=== PATIENT | female | born 1985 | race African-American/Black ===

== ENCOUNTER 2016-09-09 18:57 | Emergency (ER) | payer OTHER ==
--- NOTE | 2016-09-09 20:59 | EDDOCDS ---
Nurse's Notes [facility] Name: Bri Carcamo Age: 30 yrs Sex: Female : 1985 Arrival Date: 09/09/2016 Time: 18:57 Bed [facility] Diagnosis: Adjustment disorder with depressed mood Presentation: 09/09 19:02 Presenting complaint: Patient states: "My command referred me here.". pt reports she mb9 has no idea why she is here but believes, "My psychiatrist must have told my command something and they decided to send me here.". pt denies SI/Hi. pt's escort reports, "She is seen by behavioral health and she is in the IOP program on [place]. Our commander gets updates on what the pt discusses and its the commanders interpretation that she (the pt) is at a high risk for suicidal tendencies". Mental Health Triage Level: Level 1- Pt displays no suicidal or homicidal ideations and does not appear to be a danger to self or others. Adult Sepsis Screening: The patient does not have new or worsening altered mentation. Patient's respiratory rate is less than 22. Systolic blood pressure is greater than 100. Patient has a qSOFA score of 0- Negative Sepsis Screen. Suicide/Homicide risk assessment- the patient denies having any suicidal and/or homicidal ideations and does not present with any other emotional, behavioral or mental health complaints. 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 Transition of care: patient was not received from another setting of care. 19:02 Acuity: NIDHI Level 4 mb9 19:02 Method Of Arrival: Walkin/Carried/Asstd mb9 Triage Assessment: 19:02 General: Appears in no apparent distress, Behavior is appropriate for age. Pain: Denies mb9 pain. HIV screening NA for this visit Offered previously. Respiratory: Airway is patent Respiratory effort is even, unlabored. 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 Penicillin 250 mg twice a day 2. Plaquenil Oral 1 tab twice a day 3. Zoloft Oral 1 tab once daily 4. Wellbutrin Unknown Oral Unknown daily - PMHx: Anxiety; Arthritis; Depression; Rheumatic Fever; - PSHx: Left Foot Surgery; - Social history: Smoking status: Patient states former smoker of tobacco. No barriers to communication noted, The patient speaks fluent Hebrew. - Family history: Not pertinent. - : The pt / caregiver states he / she is not on anticoagulants. Home medication list is obtained from the patient. - Exposure Risk Screening:: None identified. Screenin:56 Screening information is obtained from the patient. Fall risk: No risks identified. mlc Assistance ADL's: requires no assistance with activities of daily living. Abuse/DV Screen: The patient / caregiver reports he/she is: not in a situation that causes fear, pain or injury. Nutritional screening: No deficits noted. Advance Directives: Currently, there is no health care proxy. home support is adequate. Assessment: 20:56 General: Appears in no apparent distress, comfortable, Behavior is cooperative, mlc pleasant. Pain: Denies pain. Neurological: Level of Consciousness is awake, alert, Oriented to person, place, time. Respiratory: Airway is patent Respiratory effort is even, unlabored, Respiratory pattern is regular. Derm: Skin is pink, warm & dry. Vital Signs: 18:58 BP 143 / 86; Pulse 88; Resp 18; Temp 98.6; Pulse Ox 100% ; Weight 90.72 kg; Height 64 jlm in. (162.56 cm); Pain 0/10; 20:50 BP 137 / 86; Pulse 70; Resp 18; Temp 98.1; Pulse Ox 100% ; Pain 0/10; mas 18:58 Body Mass Index 34.33 (90.72 kg, 162.56 cm) [facility] Vitals: 18:58 Log In Time: September 09, 2016 at 18:58. RN notified that patient meets Red Flag jlm criteria. ED Course: 18:58 Patient visited by Pau Horton Unit Clerk. [facility] 18:58 [facility] Phys[facility]. [facility] 18:58 Patient moved to Waiting [facility] 19:07 Patient moved to [facility] mas 19:08 Yang Blackburn FNP is [facility] ke 19:08 Patient visited by Yang Blackburn FNP. ke 19:08 Patient visited by Yang Blackburn FNP. ke 19:15 Patient visited by Jose Nicholson. mas 19:20 Triage Initiated mb9 19:40 Patient visited by Jose Nicholson. mas 19:45 Patient visited by Jose Nicholson. mas 20:00 Patient visited by Jose Nicholson. mas 20:15 Patient visited by Jose Nicholson. mas 20:30 Patient visited by Jose Nicholson. mas 20:45 Patient visited by Jose Nicholson. mas 20:46 [facility] Payment Agreement was scanned into [employer] and attached to record. zo 20:48 [facility] is Referral Physician. ke 20:48 [facility] ke 20:56 The patient / caregiver is instructed regarding the plan of care and ED course. mlc 20:56 No IV's were initiated during this patient's visit. No procedures done that require mlc assistance. Order Results: There are currently no results for this order. Outcome: 20:49 Discharge ordered by Provider. ke 20:56 Discharge Assessment: Patient awake, alert and oriented x 3. No cognitive and/or mlc functional deficits noted. Patient verbalized understanding of disposition instructions. patient administered narcotics - no. The following High Risk Discharge criteria are identified: None. Discharged to home ambulatory, with Chain of command. Condition: stable. Discharge instructions given to patient, Instructed on discharge instructions, follow up and referral plans. Demonstrated understanding of instructions, Pt was receptive of discharge instructions/ teaching. No special radiology studies were completed. Property sent home with patient. 20:57 Patient left the ED. mlc Signatures: Yang Blackburn, DRUG ABUSE RESISTANCE EDUCATION OFFICER DRUG ABUSE RESISTANCE EDUCATION OFFICER Rubens Vargas Marcus mas Mitchell, Jessie, Glass Forming Engineer Unit Flory Greenberg RN RN mlc Belles, Michael, RN RN mb9 MTDD
--- NOTE | 2016-09-09 20:59 | EDDOCDS ---
Physician Documentation [facility] Name: Bri Carcamo Age: 30 yrs Sex: Female : 1985 Arrival Date: 09/09/2016 Time: 18:57 Bed [facility] Disposition: 09/09/16 20:49 Discharged to Home/Self Care. Impression: Adjustment disorder with depressed mood. - Condition is Stable. - Discharge Instructions: Adjustment Disorder, Depression, Adult, Self-Destructive Behavior. - Medication Reconciliation, Local Pharmacy Hours form. - [facility] [place]; When: 4 - 5 days; Reason: Continuance of care. Follow up: [place], [facility]; When: 4 - 5 days; Reason: Continuance of care. - Problem is an ongoing problem. - Symptoms are unchanged. Historical: - Allergies: no known allergies; - Home Meds: 1. Penicillin 250 mg twice a day 2. Plaquenil Oral 1 tab twice a day 3. Zoloft Oral 1 tab once daily 4. Wellbutrin Unknown Oral Unknown daily - PMHx: Anxiety; Arthritis; Depression; Rheumatic Fever; - PSHx: Left Foot Surgery; - Social history: Smoking status: Patient states former smoker of tobacco. No barriers to communication noted, The patient speaks fluent Mohawk. - Family history: Not pertinent. - : The pt / caregiver states he / she is not on anticoagulants. Home medication list is obtained from the patient. - Exposure Risk Screening:: None identified. 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 (162.56 cm); Pain 0/10; 20:50 BP 137 / 86; Pulse 70; Resp 18; Temp 98.1; Pulse Ox 100% ; Pain 0/10; mas 18:58 Body Mass Index 34.33 (90.72 kg, 162.56 cm) jl MDM: 19:40 Financial registration complete. zo 20:46 [facility] [place] Agreement was scanned into [employer] and attached to record. zo Signatures: Yang Blackburn, INVENTORY TRANSCRIBER INVENTORY TRANSCRIBER Rubesn Vargas Mandy, RN RN mlc Kike Sahu RN RN mb9 The chart was reviewed and I authenticate all verbal orders and agree with the evaluation and treatment provided.Attachments: 20:46 [facility] Payment Agreement zo MTDD
--- NOTE | 2016-09-11 21:58 | EDDOCDS ---
Physician Documentation [facility] Name: Bri Carcamo Age: 30 yrs Sex: Female : 1985 Arrival Date: 09/09/2016 Time: 18:57 Bed [facility] Private [facility] Disposition: 09/09/16 20:49 Discharged to Home/Self Care. Impression: Adjustment disorder with depressed mood. - Condition is Stable. - Discharge Instructions: Adjustment Disorder, Depression, Adult, Self-Destructive Behavior. - Medication Reconciliation, Local Pharmacy Hours form. - [facility] [place]; When: 4 - 5 days; Reason: Continuance of care. Follow up: [place], [facility]; When: 4 - 5 days; Reason: Continuance of care. - Problem is an ongoing problem. - Symptoms are unchanged. Historical: - Allergies: no known allergies; - Home Meds: 1. Penicillin 250 mg twice a day 2. Plaquenil Oral 1 tab twice a day 3. Zoloft Oral 1 tab once daily 4. Wellbutrin Unknown Oral Unknown daily - PMHx: Anxiety; Arthritis; Depression; Rheumatic Fever; - PSHx: Left Foot Surgery; - Social history: Smoking status: Patient states former smoker of tobacco. No barriers to communication noted, The patient speaks fluent Indonesian. - Family history: Not pertinent. - : The pt / caregiver states he / she is not on anticoagulants. Home medication list is obtained from the patient. - Exposure Risk Screening:: None identified. 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 (162.56 cm); Pain 0/10; 20:50 BP 137 / 86; Pulse 70; Resp 18; Temp 98.1; Pulse Ox 100% ; Pain 0/10; mas 18:58 Body Mass Index 34.33 (90.72 kg, 162.56 cm) jl MDM: 19:40 Financial registration complete. zo 20:46 [facility] Payment Agreement was scanned into [employer] and attached to record. zo 21:43 E Legal paperwork was scanned into [employer] and attached to record. 09/10 09:24 T-Sheet-- Draft Copy was scanned into [employer] and attached to record. [facility] Signatures: Tariq Watkins, PSA PSA Yang Blackburn, CARD SCRAPER Rubens Villagomez Mandy, RN RN mlc Belles, Michael, RN RN mb9 Karissa Orosco [facility] The chart was reviewed and I authenticate all verbal orders and agree with the evaluation and treatment provided.Attachments: 09/09 20:46 [facility] [place] zo 09/10 09:24 T-Sheet-- Draft Copy [facility] Chart Complete MTDD
--- NOTE | 2016-09-11 21:58 | EDDOCDS ---
Physician Documentation [facility] Name: Bri Carcamo Age: 30 yrs Sex: Female : 1985 Arrival Date: 09/09/2016 Time: 18:57 Bed [facility] Disposition: 09/09/16 20:49 Discharged to Home/Self Care. Impression: Adjustment disorder with depressed mood. - Condition is Stable. - Discharge Instructions: Adjustment Disorder, Depression, Adult, Self-Destructive Behavior. - Medication Reconciliation, Local Pharmacy Hours form. - [facility] [place]; When: 4 - 5 days; Reason: Continuance of care. Follow up: [place], [facility]; When: 4 - 5 days; Reason: Continuance of care. - Problem is an ongoing problem. - Symptoms are unchanged. Historical: - Allergies: no known allergies; - Home Meds: 1. Penicillin 250 mg twice a day 2. Plaquenil Oral 1 tab twice a day 3. Zoloft Oral 1 tab once daily 4. Wellbutrin Unknown Oral Unknown daily - PMHx: Anxiety; Arthritis; Depression; Rheumatic Fever; - PSHx: Left Foot Surgery; - Social history: Smoking status: Patient states former smoker of tobacco. No barriers to communication noted, The patient speaks fluent German. - Family history: Not pertinent. - : The pt / caregiver states he / she is not on anticoagulants. Home medication list is obtained from the patient. - Exposure Risk Screening:: None identified. 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 (162.56 cm); Pain 0/10; 20:50 BP 137 / 86; Pulse 70; Resp 18; Temp 98.1; Pulse Ox 100% ; Pain 0/10; mas 18:58 Body Mass Index 34.33 (90.72 kg, 162.56 cm) jl MDM: 19:40 Financial registration complete. zo 20:46 [facility] Payment Agreement was scanned into [employer] and attached to record. zo 21:43 E Legal paperwork was scanned into [employer] and attached to record. 09/10 09:24 T-Sheet-- Draft Copy was scanned into [employer] and attached to record. [facility] Signatures: Tariq Watkins, PSA PSA Yang Blackburn, DOOR MAKER Rubesn Villagomez Mandy, RN RN mlc Belles, Michael, RN RN mb9 Karissa Orosco [facility] The chart was reviewed and I authenticate all verbal orders and agree with the evaluation and treatment provided.Attachments: 09/09 20:46 [facility] [place] Agreement zo 09/10 09:24 T-Sheet-- Draft Copy [facility] [place] Chart Complete MTDD
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
== END 2016-09-09 20:57 | disposition home or self-care (01) ==
LOC: M ED 18:57
DX: F32.9 Major depressive disorder, single episode, unspecified (principal); F43.20 Adjustment disorder, unspecified; I00 Rheumatic fever without heart involvement; F41.9 Anxiety disorder, unspecified; M19.90 Unspecified osteoarthritis, unspecified site; Z79.899 Other long term (current) drug therapy; Z88.2 Allergy status to sulfonamides; Z87.891 Personal history of nicotine dependence

== ENCOUNTER → 2016-12-02 | Outpatient (CLI) | payer OTHER ==
--- NOTE | 2016-12-02 21:24 | ECHO ---
DATE OF PROCEDURE: 12/02/2016 REFERRING PHYSICIAN: Titi Corado MD HEIGHT: 162 cm WEIGHT: 103 kg INDICATION: Chest pain. DIMENSIONS: IVS: 1.2 LV: 3.9 LVPW: 1.2 LA: 3.2 Aorta: 2.8 FINDINGS: The study is of good technical quality. Left ventricle is of normal size and systolic function with estimated ejection fraction (EF) around 60-65%. Mild left ventricular hypertrophy is present. Right ventricle is normal size and systolic function. Both atria appear normal. All four cardiac valves were reasonably well seen and appear normal. No pericardial effusion is noted. Inferior vena cava is normal size. Aortic root, aortic arch and abdominal aorta appear normal. Doppler interrogation reveals no aortic stenosis or insufficiency. There is also no mitral stenosis or insufficiency. There is trace tricuspid insufficiency, calculated pulmonary artery pressure is within normal limits. Pulmonic valve is functionally competent. Mitral inflow pattern and tissue Doppler imaging of mitral annulus reveal likely normal diastolic function, even though tissue Doppler velocities of mitral annulus, (septal E prime 7.7 and lateral E prime 6.7 cm/s) are reduced. CONCLUSIONS: 1. Study is of acceptable technical quality. 2. Normal left ventricle (LV) size with mild left ventricular hypertrophy (LVH) and preserved LV systolic function. Normal diastolic function. 3. No significant valvular disease. 4. Normal central venous pressure and likely normal pulmonary artery pressure. COMMENTS: Subacute bacterial endocarditis (SBE) prophylaxis is not recommended. MTDD
== END ==
LOC: M CARPUL 08:32
PROVIDERS: ATTEND Internal Medicine
DX: R07.9 Chest pain, unspecified (principal)

== ENCOUNTER 2017-01-27 16:10 | Inpatient (IN) | payer OTHER ==
[~2017-01-27] VITALS: Ht 162.6 cm; Wt 110.9 kg
[2017-01-27] MEDS: NICOTINE 21MG/24HR 1 EA TRANSDERMAL TD SCH (09:00)
[2017-01-27] MEDS ORDERED: ABIL1TAB11 PO (16:48)
[2017-01-27] MEDS ORDERED: HYDRO50TAB PO (16:48)
[2017-01-27] MEDS ORDERED: HYDR-3363 PO (16:48)
[2017-01-27] MEDS ORDERED: LITH300C PO (16:48)
[2017-01-27] MEDS ORDERED: WELLTAB40 PO (16:48)
[2017-01-27] MEDS ORDERED: AMBI12.52 PO (16:48)
[2017-01-27] MEDS ORDERED: GABA-282 PO (16:48)
[2017-01-27] MEDS ORDERED: ZOLO100T PO (16:48)
[2017-01-27] MEDS ORDERED: PENI250T57 PO (16:49)
[2017-01-27] MEDS ORDERED: LITH45TASA PO (17:03)
[2017-01-27] MEDS ORDERED: FERR1TAB8 PO (17:03)
[2017-01-27] MEDS ORDERED: ASCO500T PO (17:03)
[2017-01-27] MEDS ORDERED: COLA100C5 PO (17:03)
[2017-01-27] MEDS ORDERED: PANT40TA2 PO (17:03)
[2017-01-27] MEDS ORDERED: WELLTAB38 PO (17:04)
[2017-01-27 18:10] LABS: MEAN CORPUSCULAR HEMOGLOBIN 28.5 pg (27.0-33.0); MEAN CORPUSCULAR HGB CONC 32.2 g/dl (32.0-36.5); MEAN CORPUSCULAR VOLUME 88.6 fl (80.0-96.0); RED CELL DISTRIBUTION WIDTH 12.9 % (11.5-14.5)
[2017-01-27 18:21] LABS: CONTROL LINE HCG INT CTR LINE PRESENT
[2017-01-27 18:36] LABS: METHADONE URINE NEGATIVE (NEGATIVE)
[2017-01-27 18:46] LABS: ALBUMIN 3.8 GM/DL (3.2-5.2); ALBUMIN/GLOBULIN RATIO 0.88 (1.00-1.93); ALKALINE PHOSPHATASE 80 U/L (45-117); ALT/SGPT 23 U/L (12-78); ANION GAP 8 MEQ/L (8-16); AST/SGOT 17 U/L (15-37); BILIRUBIN,DIRECT < 0.1 MG/DL (0.0-0.2); BILIRUBIN,TOTAL 0.3 MG/DL (0.2-1.0); BLOOD UREA NITROGEN 7 MG/DL (7-18); CALCIUM LEVEL 9.4 MG/DL (8.5-10.1); CARBON DIOXIDE LEVEL 25 MEQ/L (21-32); CHLORIDE LEVEL 104 MEQ/L (98-107); CREATININE FOR GFR 0.83 MG/DL (0.55-1.02); GLOMERULAR FILTRATION RATE > 60.0 (>60); GLUCOSE, FASTING 78 MG/DL (70-105); POTASSIUM SERUM 4.2 MEQ/L (3.5-5.1); SODIUM LEVEL 137 MEQ/L (136-145); TOTAL PROTEIN 8.1 GM/DL (6.4-8.2)
[2017-01-27] MEDS ORDERED: LORazepam 2 MG TAB PO PRN (19:45)
[2017-01-27] MEDS ORDERED: MOM 30ML SUSPENSION UDC PO PRN (19:45)
[2017-01-27] MEDS ORDERED: MAALOX 30 ML SUSP *UDC PO PRN (19:45)
[2017-01-27] MEDS ORDERED: traZODone 50 MG TAB PO PRN (19:45)
[2017-01-27] MEDS ORDERED: HALOPERIDOL 5 MG TAB PO PRN (19:45)
[2017-01-27] MEDS ORDERED: LITHIUM CARBONATE 450 MG **CR** TAB PO SCH (21:00)
[2017-01-27 22:12] VITALS: BP 136/82
[2017-01-28 06:50] VITALS: BP 138/97
[2017-01-28] MEDS: NICOTINE 21MG/24HR 1 EA TRANSDERMAL TD SCH (09:00)
[2017-01-28] MEDS: SERTRALINE 100 MG TAB PO SCH (09:05)
[2017-01-28] MEDS: buPROPion **XL** TABLET 150MG (WELLBUTRIN XL) PO SCH (09:05)
[2017-01-28 18:00] VITALS: BP 125/73
--- NOTE | 2017-01-28 18:20 | MHHPE ---
DATE OF ADMISSION: 01/27/2017 CURRENT MEDICATIONS: - Zoloft 150 mg in the morning - gabapentin 300 mg three times a day - Abilify 5 mg in the morning - Atarax 25 mg twice a day - Atarax 50 mg at night - Ambien 12.5 mg at night - Wellbutrin 450 mg in the morning - lithium carbonate 450 mg at night CHIEF COMPLAINT: Suicidal ideation with plans to buy a gun and shoot herself. 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 The patient is seen at the [facility] with a diagnosis of major depression, posttraumatic stress disorder (PTSD) and generalized anxiety disorder. The patient had plans to either shoot herself with a gun or to cut her wrists. She does have a history of cutting. The patient has had multiple stressors. She has financial stress and other stress at home with her family. 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 The patient was involved in a therapy group with him and was upset and shocked to hear about his behavior. She is afraid that she might do something similar. She does have a history of depression dating back to 2011. She reports problems with her concentration. She always feels tired and fatigued. She is not sleeping well at night despite being on multiple psychotropics. Her appetite is increased. She has gained 40 pounds in the past 6 months. The patient is being MED boarded out of the [employer]. She has another 3 or 6 months before she will be released. The patient has a history of posttraumatic stress disorder (PTSD). She has been deployed overseas in the past. The patient is on multiple psychotropics and is not sure which medications are helpful and which ones are not. She states that her lithium has been reduced recently. She apparently had some thyroid issues from it. She denies having any worsening in suicidal thoughts since the lithium dose has been reduced. She blames her stressors instead. PAST PSYCHIATRIC HISTORY: The patient has been in treatment in the since 2011 for depression and posttraumatic stress disorder (PTSD). She has never been hospitalized before. She has no psychiatric treatment before then. MEDICAL HISTORY: Strain in her left calf. Possible hypothyroidism. SURGICAL HISTORY: Surgery on her left foot. ALLERGIES: The patient denies. LEGAL ISSUES: None. CHEMICAL DEPENDENCY: Negative. SOCIAL HISTORY: The patient was born in [facility] Raised in [place] and then in [place]. She reports having an MITZY. She has no contact with her father. The patient's mother lives with her. The relationship with her mother is good. The patient has two sisters and one brother. Her brother is also living with her family. The patient is being MED boarded out of the [employer], as mentioned above. She is not sure about her future. FAMILY PSYCHIATRIC HISTORY: The patient's mother has a history of anxiety and depression. Sister has a history of PTSD. MENTAL STATUS EXAMINATION: The patient is alert and oriented. Affect is sad and subdued, somewhat irritable with psychomotor retardation. Mood appears moderately depressed. She denies current suicidal thoughts. She denies current homicidal thoughts either. She denies hearing voices, paranoia, thought disorder. Insight and judgment are fair. Memory functions appear intact. DIAGNOSES: 1. Major depression, recurrent, moderate in severity. 2. Posttraumatic stress disorder (PTSD). 3. Generalized anxiety disorder. PLAN: The patient's 9.39 is confirmed. The patient wants to be discharged as soon as possible. The patient will need to be involved in the hospital milieu. Psychosocial stressors will be evaluated and reviewed with the discharge planning team. The patient's Abilify and gabapentin are placed on hold. Wellbutrin and Zoloft doses are reduced. The patient is offered trazodone for sleep instead of the Ambien. WILLIAM
[2017-01-28] MEDS: LITHIUM CARBONATE 450 MG **CR** TAB PO SCH (22:28)
--- NOTE | 2017-01-29 01:38 | HPE ---
DATE OF ADMISSION: 01/27/2017 HISTORY OF PRESENT ILLNESS: Please refer to psychiatric history and evaluation for further details on this admission. This examination and history is intended for medical issues, which may need treatment, followup or consult on this 31-year-old female. ALLERGIES: No known allergies. PRIMARY CARE PROVIDER: Rey. SOCIAL HISTORY: She is . 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 Ethyl alcohol (EtOH) none. Smokes none. Recreational drug use none. PAST MEDICAL HISTORY: Gastroesophageal reflux disease (GERD). PAST SURGICAL HISTORY: Left foot surgery times two done 01/18/2017. HOME MEDICATIONS: - Abilify 5 mg by mouth daily - ascorbic acid 500 mg by mouth daily - bupropion 150 mg by mouth daily - bupropion 300 mg by mouth daily - Colace 100 mg by mouth daily as needed for constipation - ferrous sulfate 325 mg by mouth daily - gabapentin 300 mg by mouth three times a day - hydroxyzine 25 mg by mouth twice a day - hydroxyzine 50 mg by mouth nightly - lithium carbonate ER 450 mg by mouth daily - sertraline, Zoloft 150 mg by mouth daily - zolpidem 12.5 mg by mouth nightly as needed for sleep FAMILY HISTORY: Noncontributory. LABORATORY STUDIES: CBC was normal. Electrolytes normal. BUN and creatinine were 7 and 0.83. [place] level was 0.29. REVIEW OF SYSTEMS: 10-system review was done, was unremarkable. Patient has a history of GERD, clinically stable. Had no acute medical complaints. OBJECTIVE: 31-year-old cooperative female in no acute distress. Height 64 inches, weight 110, body mass index (BMI) 41.7. Blood pressure 136/82, pulse 72, respirations 18, temperature 97.7. Patient is alert and oriented times three. Pupils equal and react to light. Extraocular muscles intact. Cornea and sclerae clear. Conjunctivae were normal. No facial asymmetry. Pharynx, tongue and gums pink and moist. Tongue is midline. Neck is supple without lymphadenopathy. No thyromegaly, no goiter. Carotids 2+ without bruit. Chest clear to auscultation without wheeze or retraction. Heart is regular. Abdomen is benign. Bowel sounds positive. Genitourinary/rectal: Not done. Extremities show equal strength, full range of motion. No cyanosis, clubbing or edema. Peripheral pulses equal and palpable bilaterally. Skin is warm and dry. IMPRESSION/PLAN: 1. Psychiatric plan per psychiatry. 2. History of gastroesophageal reflux disease (GERD): Continue proton pump inhibitor. 3. History of anemia: Hemoglobin and hematocrit is normal. Continue iron once daily. No acute medical issues.
[2017-01-29 06:21] VITALS: BP 130/71
[2017-01-29] MEDS: NICOTINE 21MG/24HR 1 EA TRANSDERMAL TD SCH (09:00)
[2017-01-29] MEDS: buPROPion **XL** TABLET 150MG (WELLBUTRIN XL) PO SCH (09:23)
[2017-01-29] MEDS: PANTOPRAZOLE 40MG TAB (PROTONIX) PO SCH (09:23)
[2017-01-29] MEDS: SERTRALINE 100 MG TAB PO SCH (09:23)
--- NOTE | 2017-01-29 16:11 | IPN ---
DATE: 01/29/2017 VITAL SIGNS: Temperature 98.0, pulse 76, respirations 19, blood pressure 130/71. 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 The patient continues to report moderate depression. Appetite is fine but her sleep patterns are poor. Trazodone has never helped her in the past. We discussed a trial on Minipress. Patient warned about risk of orthostatic issues on it. She had friends and family visiting last night. She does have good supports in the community. The patient has been isolating with minimal interaction with others in the milieu. She is encouraged to become more active in the hospital treatment program. MENTAL STATUS EXAMINATION: The patient is alert and oriented and cooperative. Grooming and hygiene is good. Affect is sad. Mood is moderately depressed. No current suicidal ideation. She is not psychotic. Insight and judgment are fair. No signs of impulsivity. Memory functions appear intact. IMPRESSION: 1. Major depression, recurrent, moderate severity. 2. Posttraumatic stress disorder (PTSD). 3. Generalized anxiety disorder. PLAN: Add Minipress 1 mg at bedtime. Encourage hospital milieu.
[2017-01-29 18:00] VITALS: BP 131/79
[2017-01-29] MEDS: LITHIUM CARBONATE 450 MG **CR** TAB PO SCH (20:37)
[2017-01-29] MEDS: PRAZOSIN 1 MG CAP PO SCH (20:38)
[2017-01-30 06:00] VITALS: BP 130/73
[2017-01-30] MEDS: NICOTINE 21MG/24HR 1 EA TRANSDERMAL TD SCH (08:28)
[2017-01-30] MEDS: SERTRALINE 100 MG TAB PO SCH (08:31)
[2017-01-30] MEDS: buPROPion **XL** TABLET 150MG (WELLBUTRIN XL) PO SCH (08:31)
[2017-01-30] MEDS: PANTOPRAZOLE 40MG TAB (PROTONIX) PO SCH (08:31)
[2017-01-30 18:00] VITALS: BP 135/84
[2017-01-30] MEDS: RAMELTEON 8 MG TAB (ROZEREM) PO SCH (21:06)
[2017-01-30] MEDS: PRAZOSIN 1 MG CAP PO SCH (21:06)
[2017-01-30] MEDS: LITHIUM CARBONATE 450 MG **CR** TAB PO SCH (21:06)
[2017-01-31 06:39] VITALS: BP 128/74
--- NOTE | 2017-01-31 06:48 | IPN ---
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 The patient has continued to report depression, she says that she has problems sleeping but her appetite is good. She says that her energy levels are very low, she has no interest whatsoever in socializing with other people, she has isolated her interest in her usual activities and it has decreased. Patient reports that she spoke to a social media job titles at [place] and she never expected to be transferred and be hospitalized because when she was very honest and she said that if she found herself in a desperate situation such like a peer of hers that recently was arrested, she said that she would shoot herself, and when the social media job titles questioned her, she said that actually she would shoot herself, not necessarily with a handgun, but with any other gun. Patient now regrets having said that at that time. MENTAL STATUS EXAMINATION: The patient is alert, oriented times three, cooperative, dressed in hospital clothes. Her mood and affect are sad. Her speech is slow, sparse, although she can communicate her thoughts and feelings pretty well. Her thought process is intact. Her thought content is about her depressive illness and how she has coped with it through the years. She denies suicidal ideation, denies homicidal ideation, denies auditory or visual hallucinations, and denies thought delusions. Her insight and judgment are fair, she does not seem to be impulsive and there is nothing in her previous history that points to impulsivity. Her memory seems to be okay. IMPRESSION: 1. Major depression, recurrent, moderate in severity. 2. Posttraumatic stress disorder. MEDICATIONS: Patient is currently on lithium 450 mg by mouth nightly, Wellbutrin XL 300 mg by mouth every morning, Zoloft 100 mg by mouth every morning. She was on trazodone 50 mg by mouth nightly, but she reported that she did not like the way that it made her feel so it was discontinued and she today she was started on Rozerem 8 mg by mouth nightly. Yesterday, Dr. Gabriel added Minipress 1 mg by mouth nightly for nightmares. PLAN: Patient will continue on the same medications and although she has reported that all the groups are a little bit overwhelming for her to attend, she has agreed to attend some of those groups and work on her issues. She will be monitored closely. Will followup.
[2017-01-31] MEDS: NICOTINE 21MG/24HR 1 EA TRANSDERMAL TD SCH (09:00)
[2017-01-31] MEDS: PANTOPRAZOLE 40MG TAB (PROTONIX) PO SCH (09:13)
[2017-01-31] MEDS: SERTRALINE 100 MG TAB PO SCH (09:13)
[2017-01-31] MEDS: buPROPion **XL** TABLET 150MG (WELLBUTRIN XL) PO SCH (09:13)
[2017-01-31] MEDS: ACETAMINOPHEN TAB 650MG DOSE (2X325MG) PO PRN ×2 (09:13→20:52)
[2017-01-31 18:00] VITALS: BP 124/74
[2017-01-31] MEDS: PRAZOSIN 1 MG CAP PO SCH (20:52)
[2017-01-31] MEDS: RAMELTEON 8 MG TAB (ROZEREM) PO SCH (20:53)
[2017-01-31] MEDS: LITHIUM CARBONATE 300 MG **CR** TAB PO SCH (20:53)
--- NOTE | 2017-01-31 23:18 | IPN ---
DATE: 01/31/2017 31-year-old -[place]ian female with history of (1) major depression, recurrent, moderate to severity, (2)posttraumatic stress disorder. SUBJECTIVE: The patient reports a lack of energy, lack of desire for interaction interacting with other people. Not feeling enthusiastic or motivated or anything. She denies suicidal ideation, denies homicidal ideation and denies psychotic thoughts. She reports she has been on the same medication for a long period of time and she said that she had stopped feeling well for a long period of time also. She says that no major changes have been done to her medications lately. OBJECTIVE: The patient is alert, cooperative with interview, with poor eye contact, good hygiene. The patient looks extremely sad, has psychomotor retardation. Her speech is soft, monotone and sparse. Her thought process is intact and her thought content is redundant about going home and being discharged. Regarding abnormal or psychotic thoughts, she denied homicidal ideation, denied suicidal ideation and denied psychotic thoughts. Her memory recent and remote are fair. Her attention and concentration are poor because the patient is very depressed and it is hard for her to focus and concentrate. She is oriented times three. Her insight and judgment are fair and her impulse control is fair. ASSESSMENT: The patient seems to be more depressed than yesterday, she says that her bedroom and my office reminds her of a room that she used to have at the [facility] when she was in [facility] and that the rooms at the inpatient mental health unit reminds her of that setting and contributes to her feeling depressed. She reports that she had to be at [facility] this upcoming Monday and she is willing to be discharged. This freelance writer has explained to her we have to get in touch with her chain of command to verify this information and see if they prefer her to go to [facility] or if they prefer her to stay at the inpatient mental health unit. Discussed medication updates with the patient and she said she has agreed to them. PLAN: The patient will be on Zoloft 150 mg instead of a 100 mg, her lithium has been increased to 600 mg by mouth at bedtime (q.h.s.) and she has been started on Abilify that will be used as a booster for her antidepressants. She will be taking Abilify 2.5 mg by mouth at bedtime (q.h.s.). The patient was encouraged to attend groups due to the fact that she said that she had to be at [facility], will discuss this situation with cyanide case hardener tomorrow, so that we are able to contact chain of command (FRANTZ) and verify this information with them. Will monitor closely and followup.
[2017-02-01 06:42] VITALS: BP 130/75
[2017-02-01] MEDS: NICOTINE 21MG/24HR 1 EA TRANSDERMAL TD SCH (08:05)
[2017-02-01] MEDS: buPROPion **XL** TABLET 150MG (WELLBUTRIN XL) PO SCH (08:06)
[2017-02-01] MEDS: PANTOPRAZOLE 40MG TAB (PROTONIX) PO SCH (08:06)
[2017-02-01] MEDS: SERTRALINE HCL 50 MG TAB PO SCH (08:06)
--- NOTE | 2017-02-01 16:30 | MHIPNPDOC ---
[facility] Progress Note Progress Note DATE OF SERVICE: 02/01/17 INTERVAL HISTORY: Medication Side effects: Denies medication side effects but reports she has not been able to sleep well. She wakes up around 2 or 3:00 in the morning and is hard for her to fall asleep again. Behavior: She has been agitated and tearful, apparently it is because her is demanding her to go back home. She isn't happy because she says that missing her appointment at [facility] will impact her negatively since she was working to be medically boarded. Group Attendance: She did not attend groups today Psychiatric Symptom change: Patient is angry, frustrated and she blames her depression for being at the inpatient mental health unit. She continues to deny the severity of her illness and says she was doing all right when she was home. VITAL SIGNS: See below. NEW TEST RESULTS: See below CURRENT MEDICATIONS: See below. MENTAL STATUS EXAMINATION: General: Alert, oriented 3, guarded, tearful, with poor eye contact and psychomotor retardation. Speech: Slow, soft spoken and sparse. Thought processes: Fair Thought content: Perseveres about being discharged, not needing hospitalization. Abstract reasoning, and computation: Fair Description of associations: Good Description of abnormal or psychotic thoughts: Denies homicidal ideation, denies suicidal ideation, denies auditory and visual hallucinations, denies thought delusions. Judgment: Limited Insight: Limited Orientation: Oriented 3 Recent and remote memory: Fair Attention span and concentration: Easily distractible, she is upset, angry/sad. Can't focus very well on the conversation. Fund of knowledge: Fair Mood: Depressed/ angry Affect: Labile DIAGNOSES: 1. Major depressive disorder, recurrent, moderate to severe 2. PTSD ASSESSMENT: Patient is severely depressed, yesterday her dose of Zoloft was increased to 150 mg by mouth daily, waiting for results. If no results, those will be increased to 200 mg by mouth daily. She will continue on Abilify 2.5 mg by mouth daily at bedtime to boost her antidepressant effect. She needs to address issues with her , which is not being supportive at this time, because she keeps calling her and demanding the patient to go back home. Patient needs long-term treatment to be stabilized. She is a danger to herself even when she denies suicidal thoughts she could become suicidal, especially if her continues to be unsupportive. MANAGEMENT PLAN: Medications: Zoloft 150 mg by mouth daily, lithium 600 mg by mouth daily at bedtime, Abilify 2.5 mg by mouth daily at bedtime, Wellbutrin XL 300 mg by mouth daily, Ativan 2 mg every 4 hours when necessary for anxiety/agitation and prazosin 1 mg by mouth daily at bedtime. Psychotherapy: Will encourage her to continue group attendance Social: At this time her is not helping her because she wants the patient to go home and for that reason the patient becomes more agitated and gets more depressed. Misc: -- Disposition: Patient needs to continue at the inpatient mental health unit for stabilization. She will continue under close observation. TIME SPENT: 30 minutes. Vital Signs Vital Signs Date Time Temp Pulse Resp B/P (MAP) Pulse Ox O2 Delivery O2 Flow Rate FiO2 02/01/17 06:42 98.2 76 16 130/75 (93) Room Air 01/27/17 21:57 100 Current Medications Current Medications Acetaminophen (Tylenol Tab) 650 mg Q6HP PRN PO HEADACHE or DISCOMFORT Last administered on 01/31/17 20:52; Start 01/27/17 at 19:45; Stop 02/26/17 at 19:44 Al Hydrox/Mg Hydrox/Simethicone (Mylanta) 30 ml Q4HP PRN PO HEARTBURN/ INDIGESTION; Start 01/27/17 at 19:45; Stop 02/26/17 at 19:44 Aripiprazole (AbiLIFY) 2.5 mg QHS PO Last administered on 01/31/17 20:51; Start 01/31/17 at 21:00; Stop 03/02/17 at 20:59 Bupropion HCl (Wellbutrin Xl) 300 mg QAM PO Last administered on 02/01/17 08: 06; Start 01/28/17 at 09:00; Stop 02/27/17 at 08:59 Haloperidol (Haldol) 5 mg Q4HP PRN PO ANXIETY/AGITATION Last administered on 08:31; Start 01/27/17 at 19:45; Stop 02/26/17 at 19:44 Home Med (Med Rec Complete!) ASDIRECTED XX ; Start 01/27/17 at 17:15; Stop at 17:15; Status DC [place] Carbonate (Eskalith-Cr) 450 mg QHS PO Last administered on 01/30/17 21 :06; Start 01/28/17 at 21:00; Stop 01/31/17 at 11:33; Status DC [place] Carbonate (Eskalith-Cr) 900 mg QHS PO ; Start 01/27/17 at 21:00; Stop at 21:00; Status DC [place] Carbonate (Lithobid Cr) 600 mg QHS PO Last administered on 01/31/17 20 :53; Start 01/31/17 at 21:00; Stop 03/02/17 at 20:59 Lorazepam (Ativan) 2 mg Q4HP PRN PO ANXIETY/AGITATION; Start 01/27/17 at 19:45 ; Stop 02/03/17 at 19:44 Magnesium Hydroxide (Milk Of Magnesia) 30 ml DAILYPRN PRN PO CONSTIPATION; Start 01/27/17 at 19:45; Stop 02/26/17 at 19:44 Nicotine (Nicoderm Cq 21mg) 1 patch DAILY TD ; Start 01/27/17 at 09:00; Stop at 08:59 Pantoprazole Sodium (Protonix) 40 mg DAILY PO Last administered on 02/01/17 08 :06; Start 01/29/17 at 09:00; Stop 02/28/17 at 08:59 Prazosin HCl (Minipress) 1 mg QHS PO Last administered on 01/31/17 20:52; Start 01/29/17 at 21:00; Stop 02/28/17 at 20:59 Quetiapine Fumarate (SEROquel) 75 mg QHS PO ; Start 02/01/17 at 21:00; Stop at 20:59 Ramelteon (Rozerem) 8 mg QHS PO Last administered on 01/31/17 20:53; Start at 21:00; Stop 02/01/17 at 12:55; Status DC Sertraline HCl (Zoloft) 100 mg QAM PO Last administered on 01/31/17 09:13; Start 01/28/17 at 09:00; Stop 01/31/17 at 11:27; Status DC Sertraline HCl (Zoloft) 150 mg QAM PO Last administered on 02/01/17t 08:06; Start 02/01/17 at 09:00; Stop 03/03/17 at 08:59 Trazodone HCl (Desyrel) 50 mg QHSP PRN PO INSOMNIA; Start 01/27/17 at 19:45; Stop 02/26/17 at 19:44; Status Cancel Allergies Coded Allergies: No Known Allergies (Unverified , 01/27/17) JULIANA ANNA MD Feb 01, 2017 16:30
[2017-02-01 18:17] VITALS: BP 116/75
[2017-02-01] MEDS: PRAZOSIN 1 MG CAP PO SCH (20:51)
[2017-02-01] MEDS: QUEtiapine FUMARATE 50 MG TAB PO SCH (20:51)
[2017-02-01] MEDS: LITHIUM CARBONATE 300 MG **CR** TAB PO SCH (20:53)
[2017-02-01] MEDS ORDERED: QUEtiapine FUMARATE 25 MG TAB PO SCH (21:00)
[2017-02-02 07:09] VITALS: BP 115/72
[2017-02-02] MEDS: SERTRALINE HCL 50 MG TAB PO SCH (08:28)
[2017-02-02] MEDS: buPROPion **XL** TABLET 150MG (WELLBUTRIN XL) PO SCH (08:28)
[2017-02-02] MEDS: NICOTINE 21MG/24HR 1 EA TRANSDERMAL TD SCH (08:28)
[2017-02-02] MEDS: PANTOPRAZOLE 40MG TAB (PROTONIX) PO SCH (08:28)
[2017-02-02 18:00] VITALS: BP 133/70
[2017-02-02] MEDS: QUEtiapine FUMARATE 50 MG TAB PO SCH (20:35)
[2017-02-02] MEDS: PRAZOSIN 1 MG CAP PO SCH (20:35)
[2017-02-02] MEDS: LITHIUM CARBONATE 300 MG **CR** TAB PO SCH (20:36)
[2017-02-03 06:28] VITALS: BP 138/81
--- NOTE | 2017-02-03 08:45 | MHIPNPDOC ---
[facility] Progress Note Progress Note DATE OF SERVICE: 02/02/17 HISTORY: 31 year old female with history of Major Depressive Disorder, moderate to severe associated to PTSD (combat related) who was referred from [place] for increased depression and suicidal ideation. Patient has denied feeling suicidal but reports tiredness, low energy, decreased interest, anhedonia, irritability, sleep problems. On the , she was very upset because her was not being supportive and when she called patient, would ask when was she going to be discharged, because she wanted the patient to go back home. Today she received her 's visit and that made her feel much better. She was able to relax, she took a nap after her left and then she has a more positive view of her stay at the [facility]. VITAL SIGNS: See below. NEW TEST RESULTS: None CURRENT MEDICATIONS: See below. MENTAL STATUS EXAMINATION: Patient is a 31-year old female, who is alert, cooperative, less irritable/less sad, with improved good eye contact Speech: Is slow, soft, coherent Language skills are normal Thought processes including: Intact. Thought content: Coherent Abstract reasoning, and computation: Fair. Description of associations: Good Description of abnormal or psychotic thoughts: Not present Judgment: Limited Insight: Limited Orientation:Oriented x 3 Recent and remote memory: Fair Attention span and concentration: Fair Language: Normal Fund of knowledge: Fair Mood: Sad/depressed Affect: Sad and depressed but a little bit more reactive, not irritable at this time DIAGNOSES: 1. Major Depressive Disorder, recurrent,moderate to severe 2. PTSD 3. . ASSESSMENT:Pt's mood improved after she spoke with her and she felt supported by her. Patient has had medications adjusted and hopfully this will help her improve her mood. MANAGEMENT PLAN: continue with the same medications at this time. Will continue adjusting them if she doesn't improve. Will encourage her to keep attending groups and reaching out instead of isolating. TIME SPENT: 20 minutes. Vital Signs Vital Signs Date Time Temp Pulse Resp B/P (MAP) Pulse Ox O2 Delivery O2 Flow Rate FiO2 02/03/17 06:28 99.7 82 16 138/81 (100) 02/01/17 06:42 Room Air Current Medications Current Medications Acetaminophen (Tylenol Tab) 650 mg Q6HP PRN PO HEADACHE or DISCOMFORT Last administered on 01/31/17t 20:52; Start 01/27/17 at 19:45; Stop 8/13/17 at 19:44 Al Hydrox/Mg Hydrox/Simethicone (Mylanta) 30 ml Q4HP PRN PO HEARTBURN/ INDIGESTION; Start 01/27/17 at 19:45; Stop 02/26/17 at 19:44 Aripiprazole (AbiLIFY) 2.5 mg QHS PO Last administered on 02/02/17 20:35; Start 01/31/17 at 21:00; Stop 03/02/17 at 20:59 Bupropion HCl (Wellbutrin Xl) 300 mg QAM PO Last administered on 02/02/17 08: 28; Start 01/28/17 at 09:00; Stop 02/27/17 at 08:59 Haloperidol (Haldol) 5 mg Q4HP PRN PO ANXIETY/AGITATION Last administered on 08:31; Start 01/27/17 at 19:45; Stop 02/26/17 at 19:44 Home Med (Med Rec Complete!) ASDIRECTED XX ; Start 01/27/17 at 17:15; Stop at 17:15; Status DC [place] Carbonate (Eskalith-Cr) 450 mg QHS PO Last administered on 01/30/17 21 :06; Start 01/28/17 at 21:00; Stop 01/31/17 at 11:33; Status DC [place] Carbonate (Eskalith-Cr) 900 mg QHS PO ; Start 01/27/17 at 21:00; Stop at 21:00; Status DC [place] Carbonate (Lithobid Cr) 600 mg QHS PO Last administered on 02/02/17 20 :36; Start 01/31/17 at 21:00; Stop 03/02/17 at 20:59 Lorazepam (Ativan) 2 mg Q4HP PRN PO ANXIETY/AGITATION; Start 01/27/17 at 19:45 ; Stop 02/09/17 at 19:44 Magnesium Hydroxide (Milk Of Magnesia) 30 ml DAILYPRN PRN PO CONSTIPATION; Start 01/27/17 at 19:45; Stop 02/26/17 at 19:44 Nicotine (Nicoderm Cq 21mg) 1 patch DAILY TD ; Start 01/27/17 at 09:00; Stop at 08:59 Pantoprazole Sodium (Protonix) 40 mg DAILY PO Last administered on 02/02/17 08 :28; Start 01/29/17 at 09:00; Stop 02/28/17 at 08:59 Prazosin HCl (Minipress) 1 mg QHS PO Last administered on 02/02/17 20:35; Start 01/29/17 at 21:00; Stop 02/28/17 at 20:59 Quetiapine Fumarate (SEROquel) 50 mg QHS PO Last administered on 02/02/17 20: 35; Start 02/01/17 at 21:00; Stop 03/03/17 at 20:59 Quetiapine Fumarate (SEROquel) 75 mg QHS PO ; Start 02/01/17 at 21:00; Stop at 21:00; Status DC Ramelteon (Rozerem) 8 mg QHS PO Last administered on 01/31/17 20:53; Start at 21:00; Stop 02/01/17 at 12:55; Status DC Sertraline HCl (Zoloft) 100 mg QAM PO Last administered on 01/31/17 09:13; Start 01/28/17 at 09:00; Stop 01/31/17 at 11:27; Status DC Sertraline HCl (Zoloft) 150 mg QAM PO Last administered on 02/02/17 08:28; Start 02/01/17 at 09:00; Stop 03/03/17 at 08:59 Trazodone HCl (Desyrel) 50 mg QHSP PRN PO INSOMNIA; Start 01/27/17 at 19:45; Stop 02/26/17 at 19:44; Status Cancel Allergies Coded Allergies: No Known Allergies (Unverified , 01/27/17) JULIANA ANNA MD Feb 03, 2017 08:45
[2017-02-03] MEDS: NICOTINE 21MG/24HR 1 EA TRANSDERMAL TD SCH (08:55)
[2017-02-03] MEDS: SERTRALINE HCL 50 MG TAB PO SCH (08:57)
[2017-02-03] MEDS: PANTOPRAZOLE 40MG TAB (PROTONIX) PO SCH (08:57)
[2017-02-03] MEDS: buPROPion **XL** TABLET 150MG (WELLBUTRIN XL) PO SCH (08:57)
--- NOTE | 2017-02-03 12:40 | MHIPNPDOC ---
[facility] Progress Note Progress Note DATE OF SERVICE: 02/03/17 HISTORY: 31 year old female with history of Major Depressive Disorder, moderate to severe associated to PTSD (combat related) who was referred from [place] for increased depression and suicidal ideation. Preventative Maintenance Technician met with patient today in lieu of patient's regular provider due to patient's provider being out today. Patient reports current anxiety level of 3/10, depression 4/10 she attributes to "not being home with my mother and my ." Patient denies suicidal and homicidal ideation, denies auditory visual hallucinations, denies urge to engage in self-injurious behavior. Patient states she feels current medication regimen is helping to improve symptoms and denies medication side effects. Patient states she continues to experience reduced energy and anhedonia , denies irritability today and states her sleep has improved somewhat with utilization of Seroquel. Patient states concentration and focus and appetite are stable. Patient denies symptoms of physical pain and presents with no signs of acute distress at time of interaction. VITAL SIGNS: See below. NEW TEST RESULTS: No new results CURRENT MEDICATIONS: See below. MENTAL STATUS EXAMINATION: Patient is a 31-year old female, who pleasant and cooperative, engageable, makes fair eye contact, presents with adequate personal hygiene, dressed in hospital clothing, ambulates was that he gait, appears stated age. Speech: Is of normal rhythm and rate, low volume, spontaneous, coherent Language skills within normal limits Thought processes including: Logical, linear, goal-directed Thought content: Rational, logical, no tangentiality or paranoia noted, no perseveration Abstract reasoning, and computation: Within normal limits Description of associations: Intact Description of abnormal or psychotic thoughts: Denies suicidal and homicidal ideation, denies auditory or visual hallucinations, does not appear to be responding to internal stimuli, does not endorse bizarre or paranoid ideation, denies preoccupation with violence or obsessions Judgment: Limited Insight: Limited Orientation: A and O 3 Recent and remote memory: Fair Attention span and concentration: Fair Language: Normal Fund of knowledge: Appears adequate Mood: "Okay, I just rather be home and I'm going to long-term care." No mood lability noted Affect: Blunted but brightens 2, expresses humor at times, congruent with mood DIAGNOSES: Major Depressive Disorder, recurrent,moderate to severe, PTSD ASSESSMENT: Patient appears to be adjusting to unit, is visible at times, engages selectively, is participating in unit activities, is pleasant with staff , and has presented with no behavior management challenges. Patient indicates current medication regimen is helping to improve symptoms, reports some improvement to symptoms post recent medication adjustment, and she denies medication side effects. Patient denies suicidal and homicidal ideation and verbalizes awareness of how to access supportive services on the unit if needed. Patient informs marketing writer that she has been informed by credit coordinator that she will be transferring to long-term care at [facility] in [place] early next week. MANAGEMENT PLAN: Continue current medication regimen Maintain safety precautions Patient to attend groups and participate in unit programming to develop coping strategies Engage patient in discharge planning process and arrange meeting with command to evaluate safe discharge/transfer planning when appropriate Patient to follow up with Edelmira Leung or [facility] PCM upon discharge/transfer TIME SPENT: 25 minutes. Vital Signs Vital Signs Date Time Temp Pulse Resp B/P (MAP) Pulse Ox O2 Delivery O2 Flow Rate FiO2 02/03/17 06:28 99.7 82 16 138/81 (100) 02/01/17 06:42 Room Air Current Medications Current Medications Acetaminophen (Tylenol Tab) 650 mg Q6HP PRN PO HEADACHE or DISCOMFORT Last administered on 01/31/17 20:52; Start 01/27/17 at 19:45; Stop 02/26/17 at 19:44 Al Hydrox/Mg Hydrox/Simethicone (Mylanta) 30 ml Q4HP PRN PO HEARTBURN/ INDIGESTION; Start 01/27/17 at 19:45; Stop 02/26/17 at 19:44 Aripiprazole (AbiLIFY) 2.5 mg QHS PO Last administered on 02/02/17 20:35; Start 01/31/17 at 21:00; Stop 03/02/17 at 20:59 Bupropion HCl (Wellbutrin Xl) 300 mg QAM PO Last administered on 02/03/17 08: 57; Start 01/28/17 at 09:00; Stop 02/27/17 at 08:59 Haloperidol (Haldol) 5 mg Q4HP PRN PO ANXIETY/AGITATION Last administered on 08:31; Start 01/27/17 at 19:45; Stop 02/26/17 at 19:44 Home Med (Med Rec Complete!) ASDIRECTED XX ; Start 01/27/17 at 17:15; Stop at 17:15; Status DC [place] Carbonate (Eskalith-Cr) 450 mg QHS PO Last administered on 01/30/17 21 :06; Start 01/28/17 at 21:00; Stop 01/31/17 at 11:33; Status DC [place] Carbonate (Eskalith-Cr) 900 mg QHS PO ; Start 01/27/17 at 21:00; Stop at 21:00; Status DC [place] Carbonate (Lithobid Cr) 600 mg QHS PO Last administered on 02/02/17 20 :36; Start 01/31/17 at 21:00; Stop 03/02/17 at 20:59 Lorazepam (Ativan) 2 mg Q4HP PRN PO ANXIETY/AGITATION; Start 01/27/17 at 19:45 ; Stop 02/09/17 at 19:44 Magnesium Hydroxide (Milk Of Magnesia) 30 ml DAILYPRN PRN PO CONSTIPATION; Start 01/27/17 at 19:45; Stop 02/26/17 at 19:44 Nicotine (Nicoderm Cq 21mg) 1 patch DAILY TD ; Start 01/27/17 at 09:00; Stop at 08:59 Pantoprazole Sodium (Protonix) 40 mg DAILY PO Last administered on 02/03/17 08 :57; Start 01/29/17 at 09:00; Stop 02/28/17 at 08:59 Prazosin HCl (Minipress) 1 mg QHS PO Last administered on 02/02/17 20:35; Start 01/29/17 at 21:00; Stop 02/28/17 at 20:59 Quetiapine Fumarate (SEROquel) 50 mg QHS PO Last administered on 02/02/17 20: 35; Start 02/01/17 at 21:00; Stop 03/03/17 at 20:59 Quetiapine Fumarate (SEROquel) 75 mg QHS PO ; Start 02/01/17 at 21:00; Stop at 21:00; Status DC Ramelteon (Rozerem) 8 mg QHS PO Last administered on 01/31/17 20:53; Start at 21:00; Stop 02/01/17 at 12:55; Status DC Sertraline HCl (Zoloft) 100 mg QAM PO Last administered on 01/31/17 09:13; Start 01/28/17 at 09:00; Stop 01/31/17 at 11:27; Status DC Sertraline HCl (Zoloft) 150 mg QAM PO Last administered on 02/03/17 08:57; Start 02/01/17 at 09:00; Stop 03/03/17 at 08:59 Trazodone HCl (Desyrel) 50 mg QHSP PRN PO INSOMNIA; Start 01/27/17 at 19:45; Stop 02/26/17 at 19:44; Status Cancel Allergies Coded Allergies: No Known Allergies (Unverified , 01/27/17) Aide Hall Feb 03, 2017 12:40
[2017-02-03 18:00] VITALS: BP 139/79
[2017-02-03] MEDS: QUEtiapine FUMARATE 50 MG TAB PO SCH (20:36)
[2017-02-03] MEDS: LITHIUM CARBONATE 300 MG **CR** TAB PO SCH (20:36)
[2017-02-03] MEDS: PRAZOSIN 1 MG CAP PO SCH (20:37)
[2017-02-03] MEDS: ACETAMINOPHEN TAB 650MG DOSE (2X325MG) PO PRN (20:37)
[2017-02-04] MEDS: NICOTINE 21MG/24HR 1 EA TRANSDERMAL TD SCH (09:00)
[2017-02-04] MEDS: PANTOPRAZOLE 40MG TAB (PROTONIX) PO SCH (09:17)
[2017-02-04] MEDS: SERTRALINE HCL 50 MG TAB PO SCH (09:17)
[2017-02-04] MEDS: buPROPion **XL** TABLET 150MG (WELLBUTRIN XL) PO SCH (09:17)
[2017-02-04 18:00] VITALS: BP 131/76
[2017-02-04] MEDS: LITHIUM CARBONATE 300 MG **CR** TAB PO SCH (20:57)
[2017-02-04] MEDS: QUEtiapine FUMARATE 50 MG TAB PO SCH (20:58)
[2017-02-04] MEDS: PRAZOSIN 1 MG CAP PO SCH (20:58)
[2017-02-05 06:58] VITALS: BP 135/81
[2017-02-05] MEDS: buPROPion **XL** TABLET 150MG (WELLBUTRIN XL) PO SCH (08:31)
[2017-02-05] MEDS: SERTRALINE HCL 50 MG TAB PO SCH (08:31)
[2017-02-05] MEDS: PANTOPRAZOLE 40MG TAB (PROTONIX) PO SCH (08:31)
[2017-02-05] MEDS: NICOTINE 21MG/24HR 1 EA TRANSDERMAL TD SCH (08:31)
[2017-02-05 18:00] VITALS: BP 139/85
[2017-02-05] MEDS: QUEtiapine FUMARATE 50 MG TAB PO SCH (21:02)
[2017-02-05] MEDS: LITHIUM CARBONATE 300 MG **CR** TAB PO SCH (21:02)
[2017-02-05] MEDS: PRAZOSIN 1 MG CAP PO SCH (21:02)
[2017-02-06 07:27] VITALS: BP 128/78
[2017-02-06] MEDS: NICOTINE 21MG/24HR 1 EA TRANSDERMAL TD SCH (09:00)
[2017-02-06] MEDS: buPROPion **XL** TABLET 150MG (WELLBUTRIN XL) PO SCH (09:47)
[2017-02-06] MEDS: PANTOPRAZOLE 40MG TAB (PROTONIX) PO SCH (09:48)
[2017-02-06] MEDS: SERTRALINE HCL 50 MG TAB PO SCH (09:48)
[2017-02-06 18:15] VITALS: BP 127/79
[2017-02-06] MEDS: QUEtiapine FUMARATE 50 MG TAB PO SCH (20:40)
[2017-02-06] MEDS: PRAZOSIN 1 MG CAP PO SCH (20:40)
[2017-02-06] MEDS: LITHIUM CARBONATE 300 MG **CR** TAB PO SCH (20:41)
[2017-02-06] MEDS: ACETAMINOPHEN TAB 650MG DOSE (2X325MG) PO PRN (20:41)
[2017-02-07 06:24] VITALS: BP 157/89
[2017-02-07] MEDS: PANTOPRAZOLE 40MG TAB (PROTONIX) PO SCH (08:56)
[2017-02-07] MEDS: buPROPion **XL** TABLET 150MG (WELLBUTRIN XL) PO SCH (08:56)
[2017-02-07] MEDS: SERTRALINE HCL 50 MG TAB PO SCH (08:56)
[2017-02-07] MEDS: NICOTINE 21MG/24HR 1 EA TRANSDERMAL TD SCH (08:56)
--- NOTE | 2017-02-07 09:03 | IPN ---
INTERVAL HISTORY DATE OF SERVICE: 02/06/2017 MEDICATION SIDE EFFECTS: Denies medication side effects. BEHAVIOR: The patient has remained isolated to her room, occasionally stepping out of it to attend some groups. She is less guarded, less angry, less depressed. GROUP ATTENDANCE: Irregular. PSYCHIATRIC SYMPTOM CHANGE: She is less guarded, less fearful, less irritable, and less sad, but some of it still persists. She is anxious about what her future holds for her. VITAL SIGNS: Within the normal range. NEW TEST RESULTS: There are no new test results. CURRENT MEDICATIONS: The patient continues on the same medications. MENTAL STATUS EXAMINATION: General: Alert, oriented times three, guarded, tearful, with poor eye contact and psychomotor retardation. Speech: Her speech is a little bit less slow than before, less sparse, becoming more spontaneous and more fluid. Thought process: Intact. Thought content: Anxious about paying bills before she gets transferred for long-term treatment for trauma. Abstract reasoning and computation: Improving. Description of associations: Good. Description of abnormal or psychotic thoughts: She denies auditory and visual hallucinations, denies though delusions, denies homicidal or suicidal ideation. Judgment and insight continue to be limited. Recent and remote memory are fair. Attention span and concentration are good. Fund of knowledge is fair. Mood less depressed and anxious. Affect congruent with mood. DIAGNOSES: 1. Major depressive disorder, recurrent, moderate to severe. 2. Posttraumatic stress disorder (PTSD). ASSESSMENT: The patient is less depressed, less irritable and guarded than she was last week. She will go for long-term treatment for trauma this upcoming Monday, but she worries about paying her bills at home. Tomorrow, the caseworker will be contacted to evaluate the possibility of helping the patient to access her accounts and her on-line payments to reduce her anxiety levels. Psychotherapy will encourage her to get up from bed and attend groups. Social: She has good social support with her and within the . DISPOSITION: She will be transferred on Monday for a long-term treatment facility for trauma. TIME SPENT: 30 minutes.
[2017-02-07] MEDS ORDERED: QUET5TAB PO (16:41)
[2017-02-07] MEDS ORDERED: NICO21PAT TD (16:41)
[2017-02-07] MEDS ORDERED: MINI1CAP PO (16:41)
[2017-02-07] MEDS ORDERED: LITH300T PO (16:41)
[2017-02-07] MEDS ORDERED: ARIP5TA PO (16:41)
[2017-02-07] MEDS ORDERED: ATIV1TAB10 PO (16:41)
[2017-02-07] MEDS ORDERED: BUPR150T3 PO (16:41)
[2017-02-07] MEDS ORDERED: SERT50TA PO (16:41)
[2017-02-07 18:08] VITALS: BP 138/80
[2017-02-07 20:52] VITALS: BP 140/84
[2017-02-07] MEDS: LORazepam 0.5 MG TAB PO SCH (20:52)
[2017-02-07] MEDS: QUEtiapine FUMARATE 50 MG TAB PO SCH (20:52)
[2017-02-07] MEDS: LITHIUM CARBONATE 300 MG **CR** TAB PO SCH (20:52)
[2017-02-07] MEDS: PRAZOSIN 1 MG CAP PO SCH (20:52)
[2017-02-08] MEDS: PANTOPRAZOLE 40MG TAB (PROTONIX) PO SCH (04:32)
[2017-02-08] MEDS: SERTRALINE HCL 50 MG TAB PO SCH (04:32)
[2017-02-08] MEDS: buPROPion **XL** TABLET 150MG (WELLBUTRIN XL) PO SCH (04:32)
[2017-02-08] MEDS: LORazepam 0.5 MG TAB PO SCH (04:32)
[2017-02-08] MEDS: NICOTINE 21MG/24HR 1 EA TRANSDERMAL TD SCH (04:32)
--- NOTE | 2017-02-08 10:28 | MHDSPDOC ---
[facility] Discharge Summary Discharge Summary DATE OF ADMISSION: Jan 27, 2017 at 19:38 DATE OF DISCHARGE: Feb 08, 2017 at 05:37 DISCHARGE DIAGNOSES: 1. Posttraumatic stress disorder REASON FOR ADMISSION: Patient was referred to [facility] because she was seen increasingly depressed at [place] and she made statements regarding suicidal thoughts. She reported that if she will ever find herself in a situation similar to what person who recently killed his and a real estate investment analyst, she will shot herself. When mad she was questioned about what will she use for shooting herself, because handguns are not sold easily to every person and she doesn't have one, she said she didn't need the handgun, distal that she could do it with anything else. CONSULTANTS INVOLVED: None TREATMENT AND PROGRESS ON THE UNIT : Patient was guarded and suspicious when she came in, she says she didn't understand why she was here, she has been taking her medications faithfully, she has been depressed for a long period of time, this was not by mouth. She also said that she has support at home, that her administered her medications, that she was never alone so she couldn't understand what "all this fuzz was about". She kept denying suicidal ideation but she remained isolative to her room, with very little interaction with peers and staff. It was only after a couple of days that she was able to get up and attend groups. Last she received the visit of her in off visiting hours and this helped her to feel better. Prior to that visit her had been putting a lot of pressure on her because she wanted her back home, she wanted the patient to be discharged and this created more pressure on the patient who ended up crying after she had telephone conversation with her on Monday, the day prior to her visit. Patient had good response to medication adjustments, Zoloft was increased to 150 mg, when she came into the unit she was on 100 mg and she was started on aripiprazole that help boost to the antidepressant effect of Zoloft. She kept taking her Wellbutrin 300 mg per day, and lithium was increased to 600 mg because when she was admitted she was taking 450 mg at night. She says she has never been diagnosed with bipolar disorder but her prescriber at [facility] hasn't even her lithium because she was not responding well to other antidepressants. 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 She was discharged today, February 08 from the inpatient mental health unit and went for long-term treatment for PTSD at [facility]. Her chain of command was here this morning to pick her up, she took all her medications before she left and the package with instructions, her medication printout and her history and progress at the inpatient mental health unit were given to her chain of command. HOSPITAL COURSE: As above DISCHARGE ASSESSMENT: Patient was not in danger to self or others at the time of this evaluation MENTAL STATUS EXAMINATION ON DISCHARGE: Patient is a 31-year old female, who is alert, oriented 3, cooperative with interview, with improved eye contact and better mood. She is not guarded and suspicious anymore. Speech is soft-spoken, fluid and spontaneous. Language skills are good Thought processes including: Intact. Thought content: Coherent. Abstract reasoning, and computation: Good. Description of associations: Good. Description of abnormal or psychotic thoughts: Denies suicidal or homicidal ideation. Judgment: Improved. Insight: Improved. Orientation to Oriented x 3. Recent and remote memory: Intact. Attention span and concentration: Good. Language: Fair. Fund of knowledge: Fair. Mood: Euthymic. Affect: congruent to mood. MEDICATIONS ON DISCHARGE: - Zoloft 150 mgs PO QD for depression/PTSD. - Wellbutrin 300 mgs PO QD for depression. - Abilify 2.5 mgs PO QHS for mood stabilization - Addison 600 mgs PO QHS. - Prazosin 1 mg PO QHS for nightmares - Seroquel 50 mgs. PO QHS for insomnia PLAN/FOLLOWUP ARRANGEMENTS: Pt will follow up at [facility] for [facility] treatment. The amount of time spent in the coordination of care for this patient was approximately 30 minutes. Vital Signs/I&Os Vital Signs Date Time Temp Pulse Resp B/P (MAP) Pulse Ox O2 Delivery O2 Flow Rate FiO2 02/07/17 20:52 140/84 02/07/17 18:08 98.5 94 18 02/06/17 07:27 Room Air Medications Scheduled Aripiprazole (Aripiprazole) 5 Mg Tab, 2.5 MG PO QHS for MOOD, #7 Ascorbic Acid (Ascorbic Acid) 500 Mg Tab, 500 MG PO DAILY, (Reported) Bupropion Hcl (Bupropion HCl Xl) 150 Mg Tab, 300 MG PO QAM for MOOD, #14 Ferrous Sulfate (Ferrous Sulfate) 325 Mg Tab, 325 MG PO DAILY, (Reported) Gabapentin (Gabapentin) 300 Mg Cap, 300 MG PO TID, (Reported) Hydroxyzine HCl (Hydroxyzine HCl) 25 Mg Tab, 25 MG PO BID, (Reported) Hydroxyzine HCl (Hydroxyzine HCl) 50 Mg Tab, 50 MG PO QHS, (Reported) Addison Carbonate (Addison Carbonate ER) 300 Mg Tab, 600 MG PO QHS for MOOD, #14 Lorazepam (Ativan) 0.5 Mg Tab, 0.5 MG PO BID for ANXIETY, #14 Nicotine (Nicotine Transdermal Syst) 21 Mg/24 Hr Dis, 1 PATCH TD DAILY for SMOKING CESSATION, #7 Pantoprazole Sodium (Pantoprazole Sodium) 40 Mg Tab, 40 MG PO DAILY, (Reported) Prazosin HCl (Minipress) 1 Mg Cap, 1 MG PO QHS for NIGHTMARES, #7 Quetiapine Fumerate (Quetiapine Fumarate) 50 Mg Tab, 50 MG PO QHS for INSOMNIA, #7 Sertraline Hcl (Zoloft) 100 Mg Tab, 150 MG PO DAILY, (Reported) Sertraline Hcl (Sertraline HCl) 50 Mg Tab, 150 MG PO QAM for DEPRESSION, #21 Scheduled PRN Docusate Sodium (Colace) 100 Mg Cap, 100 MG PO DAILY PRN for CONSTIPATION, ( Reported) Allergies Coded Allergies: No Known Allergies (Unverified , 01/27/17) JULIANA ANNA MD Feb 08, 2017 10:28
--- NOTE | 2017-02-08 13:22 | MHIPN ---
INTERVAL HISTORY DATE OF SERVICE: 02/07/2017 MEDICATION SIDE EFFECTS: Denies medication side effects. Says that she feels better but has been feeling anxious since last night because she is being transferred to long-term treatment for posttraumatic stress disorder (PTSD), and she is worried about what could happen to her mother and her . BEHAVIOR: She has had no behavioral problems. Has attended several groups. Has been compliant with medications and has kept a good attitude towards staff and peers. PSYCHIATRIC SYMPTOM CHANGE: She is more spontaneous and fluid when she talks. She is less guarded and is more insightful about her illness. She is a little bit more anxious than before. VITAL SIGNS: Within the normal range. NEW TEST RESULTS: There are no new test results. CURRENT MEDICATIONS: The patient was started today on Ativan 0.5 mg twice a day , and she already was on Ativan 2 mg by mouth as needed every 4 hours, but the PRn is suppossed to be taken only when her anxiety has not responded to therapy , breathing technics or lower doses of Ativan. MENTAL STATUS EXAMINATION: General: Alert, oriented times three, dressed in hospital clothes, pleasant, and cooperative, with better eye contact than yesterday. Speech: Spontaneous and fluid. Thought process: Intact. Thought content: Is coherent. Abstract reasoning and computation: Are fair. Description of associations: Good. Description of abnormal or psychotic thoughts: She denies suicidal ideation. Denies homicidal ideation. Denies though delusions. Denies auditory or visual hallucinations. Judgment and insight: Are fair. Attention span and concentration: Are good. Fund of knowledge: Fair. Her mood is less depressed. She is able to smile a couple of times, and the expression in her face does not show the pain or the anger that it was evidenced during her hospitalization. Her affect is congruent with mood. Full range. Appropriate. DIAGNOSES: 1. Major depressive disorder, recurrent, moderate to severe. 2. Posttraumatic stress disorder. ASSESSMENT: Her depression is secondary to her posttraumatic stress disorder, so her main diagnosis is really PTSD. The patient has improved with the increase in Zoloft to 150 mg by mouth every day and the increase in Abilify as a booster for her antidepressant. She will be going tomorrow for long-term treatment hospitalization for PTSD. She will be discharged to her chain of command at 5 a.m., and she has to take her medications before she leaves. The patient is stable at this time. Not suicidal and not homicidal. She is not a danger to self or others. She is not psychotic. WILLIAM
== END 2017-02-08 05:37 | DRG 882 ==
LOC: M ED 16:10 → EDBD 16:10 → M ED INP 19:38 → M PSY 22:02
PROVIDERS: ADMIT Psychiatry & Neurology Psychiatry; ATTEND Psychiatry & Neurology Psychiatry
DX: F43.10 Post-traumatic stress disorder, unspecified (principal); R45.851 Suicidal ideations; K21.9 Gastro-esophageal reflux disease without esophagitis; D64.9 Anemia, unspecified; Z79.899 Other long term (current) drug therapy

== ENCOUNTER 2017-03-30 22:25 | Emergency (ER) | payer OTHER ==
[~2017-03-30] VITALS: Ht 162.6 cm; Wt 122.7 kg
[~2017-03-30 22:25] MED LIST: ABIL1TAB11 PO; AMBI12.52 PO; ARIP5TA PO; ASCO500T PO; ATIV1TAB10 PO; BUPR150T3 PO; COLA100C5 PO; FERR1TAB8 PO; GABA-282 PO; HYDR-3363 PO; HYDRO50TAB PO; LITH300C PO; LITH300T PO; LITH45TASA PO; MINI1CAP PO; NICO21PAT TD; PANT40TA2 PO; PENI250T57 PO; QUET5TAB PO; SERT50TA PO; WELLTAB38 PO; WELLTAB40 PO; ZOLO100T PO
[2017-03-30] MEDS ORDERED: PROP10TA56 PO (23:01)
[2017-03-30] MEDS ORDERED: LITH300C PO (23:01)
[2017-03-30] MEDS ORDERED: BUPR300T34 PO (23:01)
[2017-03-30] MEDS ORDERED: OMEP40CA2 PO (23:01)
[2017-03-30] MEDS ORDERED: ABIL10TA9 PO (23:01)
[2017-03-30] MEDS ORDERED: PRAZ2CAP PO (23:01)
[2017-03-30] MEDS ORDERED: AMIT75TA PO (23:01)
[2017-03-31 01:49] LABS: BASO % 0.3 % (0.0-1.0); EOS # 0.3 K/mm3 (0.0-0.50); EOS % 3.5 % (0.0-3.0); LARGE UNSTAINED CELL # 0.2 K/mm3 (0.0-0.4); LARGE UNSTAINED CELL % 2.3 % (0.0-4.0); LYMPH # 1.4 K/mm3 (1.5-4.5); LYMPH % 16.3 % (24.0-44.0); MEAN CORPUSCULAR HEMOGLOBIN 27.7 pg (27.0-33.0); MEAN CORPUSCULAR HGB CONC 32.1 g/dl (32.0-36.5); MEAN CORPUSCULAR VOLUME 86.3 fl (80.0-96.0); MONO # 0.5 K/mm3 (0.0-0.8); MONO % 5.2 % (0.0-5.0); NEUTROPHILS # 6.3 K/mm3 (1.8-7.7); NEUTROPHILS % 72.4 % (36.0-66.0); PLATELET COUNT, AUTOMATED 273 k/mm3 (150-450); RED CELL DISTRIBUTION WIDTH 14.2 % (11.5-14.5); WHITE BLOOD COUNT 8.6 K/mm3 (4.0-10.0)
[2017-03-31 02:07] LABS: ALBUMIN 3.1 GM/DL (3.2-5.2); ALKALINE PHOSPHATASE 77 U/L (45-117); ALT/SGPT 35 U/L (12-78); ANION GAP 7 MEQ/L (8-16); AST/SGOT 20 U/L (15-37); BILIRUBIN,TOTAL 0.3 MG/DL (0.2-1.0); BLOOD UREA NITROGEN 8 MG/DL (7-18); CALCIUM LEVEL 8.3 MG/DL (8.5-10.1); CARBON DIOXIDE LEVEL 26 MEQ/L (21-32); CHLORIDE LEVEL 103 MEQ/L (98-107); CREATININE FOR GFR 0.69 MG/DL (0.55-1.02); GLOMERULAR FILTRATION RATE > 60.0 (>60); GLUCOSE, FASTING 101 MG/DL (70-105); POTASSIUM SERUM 3.7 MEQ/L (3.5-5.1); SODIUM LEVEL 136 MEQ/L (136-145); TOTAL PROTEIN 7.5 GM/DL (6.4-8.2)
[2017-03-31 04:04] VITALS: BP 142/58
--- NOTE | 2017-04-01 17:15 | ECGEPIP ---
Stationary ECG Study [facility] - ED Test Date: 2017-03-31 Pat Name: ANDREW PERRY Department: Room: - Gender: F Lumber Straightened: : 1985 Requested By: Fareed Espinoza Order Number: [id number] Reading MD: Karissa Glaser Measurements Intervals [place] Rate: 93 P: 65 OR: 177 QRS: 57 QRSD: 91 T: 10 QT: 350 QTc: 436 Interpretive Statements SINUS RHYTHM NSTTW ABNORMALITY INCREASED RATE 04/19/16 Electronically Signed On 04-01-2017 17:15:06 EDT by Karissa Glaser
== END 2017-03-31 04:11 | disposition home or self-care (01) ==
LOC: M ED 22:25
DX: R60.0 Localized edema (principal); I10 Essential (primary) hypertension; F31.9 Bipolar disorder, unspecified